=== PATIENT | female | born 1955 | race Caucasian/White ===

== ENCOUNTER → 2016-10-18 | Outpatient (CLI) | payer OTHER ==
--- NOTE | 2016-10-18 11:08 | DIAGNOSTIC IMAGING REPORT ---
PROCEDURE: XR HAND 3 OR 4 VIEWS BILATERAL INDICATION: POLYARTHRALGIA TECHNIQUE: Four views of each hand. COMPARISON: None. FINDINGS: RIGHT HAND: There is mild osteoarthritis in the first metacarpal phalangeal joint. Osseous structures and joint spaces are otherwise normal. LEFT HAND: There is mild osteoarthritis in the first metacarpal phalangeal joint. Osseous structures and joint spaces are otherwise normal. IMPRESSION: 1. Bilateral first MCP osteoarthritis.
== END ==
LOC: XR SRH 10:27
DX: M19.042 Primary osteoarthritis, left hand (principal); M19.041 Primary osteoarthritis, right hand

== ENCOUNTER 2016-12-14 21:38 | Emergency (ER) | payer OTHER ==
--- NOTE | 2016-12-14 22:35 | ED NURSING NOTES ---
Clinical Report - Nurses [facility] [address] [place] [address] 12/14/2016 21:38 Patient: KEITH CRYSTAL TRIAGE Triage time 21:45. Acuity: LEVEL 4. Chief Complaint: SKIN LESION. --21:49 Yohan Nagy 21:45 12/14/16. BP: 158/83. HR: 93. RR: 16. O2 saturation: 97%. Temp: 98.2 F. Pain level now: 04/18. --21:49 Rubén Nagy. Weight: 48 kg. Height/Length: 64 inches. BMI: 18.2. --21:47 Rubén Nagy. Medications Gabapentin Oral (Tablet 600 mg) 1-1/2 tablets, 3x a day. HydrOXYzine HCl Oral 25 mg, 4x a day. MetFORMIN HCl Oral (Tablet 500 mg) 1 tablet, 2x a day. Naproxen Oral (Tablet 500 mg) 1 tablet, 2x a day. TraZODone HCl Oral 50 mg, 3x a day. --21:49 Rubén Nagy. Allergies Augmentin. --21:49 Rubén Nagy. History Arrived by private vehicle. Historian: patient. ( left arm pit large red raised area, pt states she was taking antibiotics and may be having a reaction). Onset. (7 days). 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 PAST MEDICAL HX: Type II diabetes mellitus treated with oral medication. Immunizations: up-to-date. SOCIAL HX: Light tobacco smoker. No alcohol use or drug use. No infectious disease exposure. SELF HARM ASSESSMENT: A self harm assessment was performed. The patient answered "no" to the question "Have you recently felt down, depressed, or hopeless?", "Have you noticed less interest or pleasure in doing things?", "Do you have thoughts of harming or killing yourself?", "Are you here because you tried to hurt yourself?", "Have you ever tried to hurt yourself before today?", "Have you recently had thoughts about harming or killing others?" and "Do you have any dangerous items in your possession?". FALL RISK ASSESSMENT: Fall risk assessment completed. No fall risk identified. NUTRITIONAL RISK ASSESSMENT: The nutritional risk assessment revealed no deficiencies. FUNCTIONAL ASSESSMENT: Functional assessment: no impairments noted. LEARNING NEEDS ASSESSMENT: The learning needs assessment revealed no barriers. SKIN INTEGRITY ASSESSMENT: Skin integrity risk assessment completed. No skin integrity risk identified. --:49 Yohan Nagy PROBLEMS: Fall. Humerus Fracture. Insomnia. Panic Attack. Fibromyalgia. --:49 Rubén Nagy. ADDITIONAL SURGERIES: Bilateral hands. Cholecystectomy. Foot surgery. Tubal Ligation. --:49 Rubén Nagy. Interventions ID band on patient. To treatment room. --:49 Rubén Nagy. PHYSICAL ASSESSMENT Ambulatory to room. GENERAL / NEURO / PSYCH: Alert. Oriented X 4. Appears in no acute distress. HEENT: Pupils equal, round and reactive to light. No facial asymmetry noted. Mucous membranes are pink. RESPIRATORY: Respirations not labored. Chest nontender. Breath sounds within normal limits. CVS: Normal sinus rhythm noted. Capillary refill less than 2 seconds. Pulses within normal limits. GI / : Abdomen soft and nontender and normal bowel sounds. SKIN: Skin is warm and dry. Swelling with tenderness and heat to left axilla. Small area of erythema with tenderness, warmth and swelling to left axilla. --21:50 Yohan Nagy NURSING PROGRESS NOTES Patient identifiers checked. Call light placed in reach. Side rails up x 1. Bed placed in lowest position. Brakes of bed on. --21:50 Rubén Nagy. Patient gowned. --21:51 Yohan Nagy 22:12 12/14/2016 Lidocaine Injection 2 % given. Allergies verified and confirmed 5 rights. (given by ORTHOTICS PROSTHETICS ASSISTANT for procedure). --22:12 Rubén Nayg. DISPOSITION / DISCHARGE Departure time: 22:51. Condition at departure: improved. ( April Rn dressed the wound under the left arm. Dry intact dressing with no drainage was noted. Pt felt that the pain was improved.). No learning barriers present. Discharge instructions provided and reviewed with the patient. Reviewed medication(s) side effects, precautions, dosing and course information. Prescription(s) given to the patient (Zofran, Keflex, [place], Motrin). Patient verbalized understanding. Written instructions provided in Qatari. The patient was discharged by the nurse practitioner. She was discharged home and unaccompanied at time of discharge. She left the Emergency Department ambulatory and via private vehicle. Patient driving. DIAMOND COMA SCORE: Diamond Coma Scale: 15- eyes open spontaneously (4); best verbal response- oriented x 4 (5); best motor response- obeys commands (6). --22:51 Maximino Sadler R.N. 22:43 12/14/16. BP: 147/81. HR: 87. RR: 18. O2 saturation: 98%. Pain level now 10. --22:51 Maximino Sadler R.N. Locked/Released at 12/14/2016 22:51 by Maximino Sadler R.N.
--- NOTE | 2016-12-14 22:35 | ED CLINICAL REPORT ---
Clinical Report - Physicians/Mid Levels [facility] [address] [place] [address] 12/14/2016 21:38 Patient: KEITH CRYSTAL Time Seen: 21:54; initial patient contact, initial documentation, patient care assumed. Arrived- By private vehicle. Historian- patient. HISTORY OF PRESENT ILLNESS Chief Complaint: LESION. This started about 1 weeks ago and is still present. It was abrupt in onset and has been constant. It is described as painful. It has been located in the left axilla. No cause has been identified. Similar symptoms previously: None. Recent medical care: The patient was seen recently in a clinic. ( went to dr jeff Triana, dx with abscess, rx bactrim, but abscess is getting larger and more painful). REVIEW OF SYSTEMS No fever. All systems otherwise negative, except as recorded above. PAST HISTORY See nurses notes. PROBLEMS: Fall. Humerus Fracture. Insomnia. Panic Attack. Fibromyalgia. --21:49 Yakov RKenN. ADDITIONAL SURGERIES: Bilateral hands. Cholecystectomy. Foot surgery. Tubal Ligation. --21:49 Yakov R.N. SOCIAL HISTORY Light tobacco smoker. No alcohol use or drug use. No recent travel. Is a local resident. FAMILY HISTORY Negative. ADDITIONAL NOTES The nursing notes have been reviewed with agreement regarding the chief complaint, HPI, ROS, PMH and patient medications and allergies. PHYSICAL EXAM Vital Signs: 12/14/2016 21:45 BP: 158/83. HR: 93. RR: 16. O2 saturation: 97%. Temp: 98.2 F. Pain level now: 8/10. Have been reviewed as normal and appear to be correct. Appearance: Alert. Oriented X3. No acute distress. Eyes: Pupils equal, round and reactive to light. Conjunctivae and eyelids normal. Neck: Neck supple. Respiratory: No respiratory distress. Skin: Skin warm and dry. Normal skin color. No rash. Normal skin turgor. Single medium abscess with fluctuance, pointing, drainage and cellulitis to left axilla. Extremities: Normal external inspection. Extremities nontender. Neuro: Oriented X 3. No motor deficit. No sensory deficit. PROGRESS AND PROCEDURES Incision & Drainage of Abscess: The abscess is located in the left axilla. The risks of the procedure, benefits and alternatives were explained. Consent was obtained. Local anesthesia provided using 1% lidocaine. Skin cleansed with Betadine. The abscess was incised with a #11 surgical blade. A large amount of pus was drained. Cavity was irrigated with saline and packed with gauze. Sample obtained for cultures. Estimated blood loss: 5 mL. ( probed to break up inoculates, 1/4 inch iodoform packing placed, pt tolerated procedure well without issues). Patient counseled in person regarding the patient's stable condition and diagnosis. Differential Diagnosis: Other possible considerations: abscess, folliculitis, hydrasuppurative, mrsa, cellulitis. Above considerations are based on history and physical exam. Differential diagnosis was discussed with patient. Disposition: Discharged home in good and improved condition (22:34). Condition: good and stable. CLINICAL IMPRESSION Single deep abscess to the left axilla with incision and drainage. INSTRUCTIONS Warnings: GENERAL WARNINGS: Return or contact your physician immediately if your condition worsens or changes unexpectedly, if not improving as expected, or if other problems arise. Specifically return if problem worsens. Prescription Medications: Zofran 4 mg: Take 1 orally every six hours as needed for nausea/vomiting. Dispense ten (10). No refills. Substitution is permissible. Keflex 500 mg: take 1 capsule orally every 6 hours for 7 days. No refills. Substitution is permissible. [place] 5 mg / 325 mg tablets: take 1 orally every 6 hours as needed for pain. Dispense five (5). No refill. Motrin 800 mg tablets: take 1 tablet orally every 8 hours as needed for pain. Dispense thirty (30). No refills. Substitution is permissible. Follow-up: Follow up with your doctor in two days even if well and for wound check and packing removal. Call for an appointment. Summary of care provided to patient. Understanding of the discharge instructions verbalized by patient. (Electronically signed by Shantal Echeverria A.R.N.P. 12/14/2016 23:08)
--- NOTE | 2016-12-14 22:35 | ED ORDER SUMMARY ---
..... Patient: KEITH CRYSTAL N OrderSheet [facility] VisitID: [id number] [address] [place] [address] 61y, F Registration Date/Time: 12/14/2016 ORDER SHEET Weight: 48.0 kg Allergies: Augmentin GENERAL ORDERS: I&D Tray (22:02 12/14/2016 HBivens A.R.N.P.) (Ack 22:03 SRedmond) (22:11 TBowen R.N.) Dress Wounds (22:02 12/14/2016 HBivens A.R.N.P.) (Ack 22:03 SRedmond) (22:11 TBowen R.N.) Culture, Wound Deep (Arm) (L axilla) Urgent (22:02 12/14/2016 HBivens A.R.N.P.) (Ack 22:03 SRedmond) (22:11 TBowen R.N.) MEDICATION ORDERS: Lidocaine Injection 1% plain (NOW) (22:01 12/14/2016 HBivens A.R.N.P.) (22:12 TBowen R.N.) IV FLUIDS: ORDER SHEET NOTES: [Electronically signed by Maximino Sadler R.N. (22:51 12/14/2016)] [Electronically signed by Shantal EcheverriaR.N.PKen (23:08 12/14/2016)] [Electronically locked/signed by Maximino Sadler R.N. (22:51 12/14/2016)]
--- NOTE | 2016-12-14 22:35 | ED NURSING NOTES ---
Clinical Report - Nurses [facility] [address] [place] [address] 12/14/2016 21:38 Patient: KEITH CRYSTAL TRIAGE Triage time 21:45. Acuity: LEVEL 4. Chief Complaint: SKIN LESION. --21:49 Yohan Nagy 21:45 12/14/16. BP: 158/83. HR: 93. RR: 16. O2 saturation: 97%. Temp: 98.2 F. Pain level now: 04/18. --21:49 Rubén Nagy. Weight: 48 kg. Height/Length: 64 inches. BMI: 18.2. --21:47 Rubén Nagy. Medications Gabapentin Oral (Tablet 600 mg) 1-1/2 tablets, 3x a day. HydrOXYzine HCl Oral 25 mg, 4x a day. MetFORMIN HCl Oral (Tablet 500 mg) 1 tablet, 2x a day. Naproxen Oral (Tablet 500 mg) 1 tablet, 2x a day. TraZODone HCl Oral 50 mg, 3x a day. --21:49 Rubén Nagy. Allergies Augmentin. --21:49 Rubén Nagy. History Arrived by private vehicle. Historian: patient. ( left arm pit large red raised area, pt states she was taking antibiotics and may be having a reaction). Onset. (7 days). 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 PAST MEDICAL HX: Type II diabetes mellitus treated with oral medication. Immunizations: up-to-date. SOCIAL HX: Light tobacco smoker. No alcohol use or drug use. No infectious disease exposure. SELF HARM ASSESSMENT: A self harm assessment was performed. The patient answered "no" to the question "Have you recently felt down, depressed, or hopeless?", "Have you noticed less interest or pleasure in doing things?", "Do you have thoughts of harming or killing yourself?", "Are you here because you tried to hurt yourself?", "Have you ever tried to hurt yourself before today?", "Have you recently had thoughts about harming or killing others?" and "Do you have any dangerous items in your possession?". FALL RISK ASSESSMENT: Fall risk assessment completed. No fall risk identified. NUTRITIONAL RISK ASSESSMENT: The nutritional risk assessment revealed no deficiencies. FUNCTIONAL ASSESSMENT: Functional assessment: no impairments noted. LEARNING NEEDS ASSESSMENT: The learning needs assessment revealed no barriers. SKIN INTEGRITY ASSESSMENT: Skin integrity risk assessment completed. No skin integrity risk identified. --:49 Yohan Nagy PROBLEMS: Fall. Humerus Fracture. Insomnia. Panic Attack. Fibromyalgia. --:49 Rubén Nagy. ADDITIONAL SURGERIES: Bilateral hands. Cholecystectomy. Foot surgery. Tubal Ligation. --:49 Rubén Nagy. Interventions ID band on patient. To treatment room. --:49 Rubén Nagy. PHYSICAL ASSESSMENT Ambulatory to room. GENERAL / NEURO / PSYCH: Alert. Oriented X 4. Appears in no acute distress. HEENT: Pupils equal, round and reactive to light. No facial asymmetry noted. Mucous membranes are pink. RESPIRATORY: Respirations not labored. Chest nontender. Breath sounds within normal limits. CVS: Normal sinus rhythm noted. Capillary refill less than 2 seconds. Pulses within normal limits. GI / : Abdomen soft and nontender and normal bowel sounds. SKIN: Skin is warm and dry. Swelling with tenderness and heat to left axilla. Small area of erythema with tenderness, warmth and swelling to left axilla. --21:50 Yohan Nagy NURSING PROGRESS NOTES Patient identifiers checked. Call light placed in reach. Side rails up x 1. Bed placed in lowest position. Brakes of bed on. --21:50 Rubén Nagy. Patient gowned. --21:51 Yohan Nagy 22:12 12/14/2016 Lidocaine Injection 2 % given. Allergies verified and confirmed 5 rights. (given by DIRECTOR INTERNAL COMMUNICATIONS for procedure). --22:12 Rubén Nagy. DISPOSITION / DISCHARGE Departure time: 22:51. Condition at departure: improved. ( April Rn dressed the wound under the left arm. Dry intact dressing with no drainage was noted. Pt felt that the pain was improved.). No learning barriers present. Discharge instructions provided and reviewed with the patient. Reviewed medication(s) side effects, precautions, dosing and course information. Prescription(s) given to the patient (Zofran, Keflex, [place], Motrin). Patient verbalized understanding. Written instructions provided in [place]ij[place]. The patient was discharged by the nurse practitioner. She was discharged home and unaccompanied at time of discharge. She left the Emergency Department ambulatory and via private vehicle. Patient driving. DIAMOND COMA SCORE: Diamond Coma Scale: 15- eyes open spontaneously (4); best verbal response- oriented x 4 (5); best motor response- obeys commands (6). --22:51 Maximino Sadler R.N. 22:43 12/14/16. BP: 147/81. HR: 87. RR: 18. O2 saturation: 98%. Pain level now 10. --22:51 Maximino Sadler R.N. Locked/Released at 12/14/2016 22:51 by Maximino Sadler R.N.
--- NOTE | 2016-12-14 22:35 | ED ORDER SUMMARY ---
..... Patient: KEITH CRYSTAL N OrderSheet [facility] VisitID: [id number] [address] [place] [address] 61y, F Registration Date/Time: 12/14/2016 ORDER SHEET Weight: 48.0 kg Allergies: Augmentin GENERAL ORDERS: I&D Tray (22:02 12/14/2016 HBivens A.R.N.P.) (Ack 22:03 SRedmond) (22:11 TBowen R.N.) Dress Wounds (22:02 12/14/2016 HBivens A.R.N.P.) (Ack 22:03 SRedmond) (22:11 TBowen R.N.) Culture, Wound Deep (Arm) (L axilla) Urgent (22:02 12/14/2016 HBivens A.R.N.P.) (Ack 22:03 SRedmond) (22:11 TBowen R.N.) MEDICATION ORDERS: Lidocaine Injection 1% plain (NOW) (22:01 12/14/2016 HBivens A.R.N.P.) (22:12 TBowen R.N.) IV FLUIDS: ORDER SHEET NOTES: [Electronically signed by Maximino Sadler R.N. (22:51 12/14/2016)] [Electronically signed by Shantal EcheverriaR.N.PKen (23:08 12/14/2016)] [Electronically locked/signed by Maximino Sadler R.N. (22:51 12/14/2016)]
--- NOTE | 2016-12-14 23:08 | ED DISCHARGE INSTRUCTIONS ---
Patient: KEITH CRYSTAL General Instructions [facility] VisitID: [id number] [place] [address] 61y, F Registration Date/Time: 12/14/2016 Single deep abscess to the left axilla with incision and drainage. INSTRUCTIONS Warnings: GENERAL WARNINGS: Return or contact your physician immediately if your condition worsens or changes unexpectedly, if not improving as expected, or if other problems arise. Specifically return if problem worsens. Prescription Medications: Zofran 4 mg: Take 1 orally every six hours as needed for nausea/vomiting. Dispense ten (10). No refills. Substitution is permissible. Keflex 500 mg: take 1 capsule orally every 6 hours for 7 days. No refills. Substitution is permissible. Erin 5 mg / 325 mg tablets: take 1 orally every 6 hours as needed for pain. Dispense five (5). No refill. Motrin 800 mg tablets: take 1 tablet orally every 8 hours as needed for pain. Dispense thirty (30). No refills. Substitution is permissible. Follow-up: Follow up with your doctor in two days even if well and for wound check and packing removal. Call for an appointment. Summary of care provided to patient. Understanding of the discharge instructions verbalized by patient. ADDITIONAL INFORMATION Abscess [Incision & Drainage] An abscess (sometimes called a boil) occurs when bacteria get trapped under the skin and begin to grow. Pus forms inside the abscess as the body responds to the bacteria. An abscess can occur with an insect bite, ingrown hair, blocked oil gland, pimple, cyst, or puncture wound. Treatment of your abscess has required an incision to drain the pus. If the abscess pocket was large, a gauze packing may have been inserted. This will need to be removed and possibly replaced on your next visit. Antibiotics are not required in the treatment of a simple abscess, unless the infection is spreading into the skin around the wound (known as cellulitis). Healing of the wound will take about one to two weeks depending on the size of the abscess. Healthy tissue will grow from the bottom and sides of the opening until it seals over. Home Care: The wound may drain for the first two days. Cover the wound with a clean dry dressing. If the dressing becomes soaked with blood or pus, change it. If a gauze packing was placed inside the abscess cavity, you may be advised to remove it yourself. You may do this in the shower. Once the packing is removed, you should wash the area in the shower or bath 3 to 4 times a day, until the skin opening has closed. If you were prescribed antibiotics, take them as directed until they are all gone. You may use acetaminophen (Tylenol) or ibuprofen (Motrin, Advil) to control pain, unless another pain medicine was prescribed. [ NOTE: If you have liver disease or ever had a stomach ulcer, talk with your doctor before using these medicines.] Follow Up with your doctor as advised by our staff. If a gauze packing was inserted in your wound, it should be removed in 1-2 days. Check your wound every day for the signs of worsening infection listed below. Get Prompt Medical Attention if any of the following occur: Increasing redness or swelling Red streaks in the skin leading away from the wound Increasing local pain or swelling Continued pus draining from the wound two days after treatment Fever of 100.4F (38C) or higher, or as directed by your healthcare provider Cellulitis You have an infection of the skin known as cellulitis. This usually starts with a scrape, cut, insect bite, blister or other opening in the skin which becomes infected. This is a serious condition. It must be watched closely to be sure the infection is not spreading. With antibiotic treatment, the size of the red area will gradually shrink in size until the skin returns to normal. This will take 7-10 days. The red area should never increase in size once the antibiotic medicine has been started. Occasionally, an infection will be resistant to one antibiotic and another one will have to be used. Home Care: 1) Limit the use of the affected part, since excess movement can cause the infection to spread. 2) If the infection is on your leg, walk as little as possible during the first few days of the treatment. Keep your leg elevated while sitting. This will reduce swelling. 3) Take all of the antibiotic medicine exactly as directed until it is gone. Be careful not to miss any doses, especially during the first seven days. Follow Up with your doctor or this facility as directed. Check the infected area daily for the warning signs listed below. Get Prompt Medical Attention if any of the following occur: -- Spreading area of redness -- Increasing swelling or pain -- Appearance of pus or drainage -- Fever over 100.4 F (38.0 C) oral, or over 101.4 F (38.6 C) rectal, after two days on antibiotics Staph Infection (MRSA) "Staph" is the short name for the common bacteria called "staphylococcus aureus". Staph bacteria are often present on the skin without causing an infection. If it gets under the skin an infection occurs. This causes redness, tenderness, swelling and sometimes fluid drainage. MRSA stands for "Methicillin-Resistant Staph Aureus". Unlike a common staph infection, MRSA bacteria are resistant to the usual antibiotics and harder to treat. Also, MRSA is more toxic than common staph bacteria. It can spread quickly throughout the body and cause a life-threatening illness. MRSA is spread to others by direct physical contact with the bacteria. MRSA can also be transmitted from items contaminated by a person who has the bacteria, such as bandages, towels, bed sheets, or sports equipment. It is not spread through the air. Once you have a MRSA skin infection, you are at risk of having it recur in the future. If MRSA infection is suspected, the doctor may take a wound culture to confirm the diagnosis. Any abscess will be drained. One or sometimes two antibiotics that work against MRSA will be prescribed. Home Care: 1) Take any antibiotics prescribed exactly as directed until they are gone. 2) Follow the same washing procedures as outlined for Household Members below. 3) Keep draining wounds covered with clean, dry bandages. Change dressings as they become soiled. 4) You and those in contact with you should wash their hands frequently with soap and warm water or use an alcohol-based hand stencil printer. Do this after each time you change the bandage or touch the wound. 5) Avoid sharing personal items such as towels, washcloths, razors, clothing, or uniforms. Wash soiled sheets, towels or clothes in hot water with laundry detergent. Use an automatic clothes dryer set on high to kill any remaining bacteria. 6) Remove any artificial nails and nail greenlandic. 7) If you use a gym, wipe down equipment before and after each use. Treatment Of Household Members If you have been diagnosed with possible MRSA infection, those living with you are at higher risk of carrying the bacteria on their skin or in their nose, even if there is no sign of infection. Bacteria must be removed from the skin of all household members (including you) at the same time, so that it is not passed back and forth. Advise them to remove the bacteria as follows: Wash your whole body (scalp to toes) daily for five days with Hibiclens (chlorhexidine). Scrub fingernails with a brush for one minute twice a day. If any skin infections are present (boils, abscess, infected cut) these must be treated by a doctor. Washing alone will not treat a MRSA infection. Clean counter tops and children's toys; do not share personal items such as toothbrush and razors. It is okay to share glasses, plates, utensils. If antibiotic ointment was prescribed use it as directed. Follow Up with your doctor or as advised by our staff. If a wound culture was taken, call as directed in two days to obtain the results. If the culture result is positive for MRSA, tell medical personnel in the future that you were treated for this type of infection. Get Prompt Medical Attention if any of the following occur: -- Increasing redness, swelling or pain -- Red streaks in the skin around the wound -- Weakness or dizziness -- New appearance of pus or drainage from the wound -- New fever over 100.4 F (38.0 C) Ondansetron Oral disintegrating tablet What is this medicine? ONDANSETRON (on ILDEFONSO se harris) is used to treat nausea and vomiting caused by chemotherapy. It is also used to prevent or treat nausea and vomiting after surgery. How should I use this medicine? These tablets are made to dissolve in the mouth. Do not try to push the tablet through the foil backing. With dry hands, peel away the foil backing and gently remove the tablet. Place the tablet in the mouth and allow it to dissolve, then swallow. While you may take these tablets with water, it is not necessary to do so. Talk to your dairy tester regarding the use of this medicine in children. Special care may be needed. What side effects may I notice from receiving this medicine? Side effects that you should report to your doctor or health rn home care as soon as possible: allergic reactions like skin rash, itching or hives, swelling of the face, lips, or tongue breathing problems dizziness fast or irregular heartbeat feeling faint or lightheaded, falls fever and chills swelling of the hands and feet tightness in the chest Side effects that usually do not require medical attention (report to your doctor or health rn home care if they continue or are bothersome): constipation or diarrhea headache What may interact with this medicine? Do not take this medicine with any of the following medications: -apomorphine -cisapride -dofetilide -dronedarone -pimozide -thioridazine -ziprasidone This medicine may also interact with the following medications: -carbamazepine -phenytoin -rifampicin -tramadol -other medicines that prolong the QT interval (cause an abnormal heart rhythm) What if I miss a dose? If you miss a dose, take it as soon as you can. If it is almost time for your next dose, take only that dose. Do not take double or extra doses. Where should I keep my medicine? Keep out of the reach of children. Store between 2 and 30 degrees C (36 and 86 degrees F). Throw away any unused medicine after the expiration date. What should I tell my health care provider before I take this medicine? They need to know if you have any of these conditions: heart disease history of irregular heartbeat liver disease low levels of magnesium or potassium in the blood an unusual or allergic reaction to ondansetron, granisetron, other medicines, foods, dyes, or preservatives or trying to get breast-feeding What should I watch for while using this medicine? Check with your doctor or health rn home care as soon as you can if you have any sign of an allergic reaction. Cephalexin Monohydrate Oral tablet What is this medicine? CEPHALEXIN (sef a JACKSON in) is a cephalosporin antibiotic. It is used to treat certain kinds of bacterial infections It will not work for colds, flu, or other viral infections. How should I use this medicine? Take this medicine by mouth with a full glass of water. Follow the directions on the prescription label. This medicine can be taken with or without food. Take your medicine at regular intervals. Do not take your medicine more often than directed. Take all of your medicine as directed even if you think you are better. Do not skip doses or stop your medicine early. Talk to your dairy tester regarding the use of this medicine in children. While this drug may be prescribed for selected conditions, precautions do apply. What side effects may I notice from receiving this medicine? Side effects that you should report to your doctor or health rn home care as soon as possible: allergic reactions like skin rash, itching or hives, swelling of the face, lips, or tongue breathing problems pain or trouble passing urine redness, blistering, peeling or loosening of the skin, including inside the mouth severe or watery diarrhea unusually weak or tired yellowing of the eyes, skin Side effects that usually do not require medical attention (report to your doctor or health rn home care if they continue or are bothersome): gas or heartburn genital or anal irritation headache joint or muscle pain nausea, vomiting What may interact with this medicine? probenecid some other antibiotics What if I miss a dose? If you miss a dose, take it as soon as you can. If it is almost time for your next dose, take only that dose. Do not take double or extra doses. There should be at least 4 to 6 hours between doses. Where should I keep my medicine? Keep out of the reach of children. Store at room temperature between 59 and 86 degrees F (15 and 30 degrees C). Throw away any unused medicine after the expiration date. What should I tell my health care provider before I take this medicine? They need to know if you have any of these conditions: kidney disease stomach or intestine problems, especially colitis an unusual or allergic reaction to cephalexin, other cephalosporins, penicillins, other antibiotics, medicines, foods, dyes or preservatives or trying to get breast-feeding What should I watch for while using this medicine? Tell your doctor or health rn home care if your symptoms do not begin to improve in a few days. Do not treat diarrhea with over the counter products. Contact your doctor if you have diarrhea that lasts more than 2 days or if it is severe and watery. If you have diabetes, you may get a false-positive result for sugar in your urine. Check with your doctor or health rn home care. Hydrocodone Bitartrate, Acetaminophen Oral tablet What is this medicine? ACETAMINOPHEN; HYDROCODONE (a set a ANIL ajcinta fen; shirley droe KOE done) is a pain reliever. It is used to treat mild to moderate pain. How should I use this medicine? Take this medicine by mouth. Swallow it with a full glass of water. Follow the directions on the prescription label. If the medicine upsets your stomach, take the medicine with food or milk. Do not take more than you are told to take. Talk to your dairy tester regarding the use of this medicine in children. This medicine is not approved for use in children. What side effects may I notice from receiving this medicine? Side effects that you should report to your doctor or health rn home care as soon as possible: allergic reactions like skin rash, itching or hives, swelling of the face, lips, or tongue breathing problems confusion feeling faint or lightheaded, falls stomach pain yellowing of the eyes or skin Side effects that usually do not require medical attention (report to your doctor or health rn home care if they continue or are bothersome): nausea, vomiting stomach upset What may interact with this medicine? alcohol antihistamines isoniazid medicines for depression, anxiety, or psychotic disturbances medicines for sleep muscle relaxants naltrexone narcotic medicines (opiates) for pain phenobarbital ritonavir tramadol What if I miss a dose? If you miss a dose, take it as soon as you can. If it is almost time for your next dose, take only that dose. Do not take double or extra doses. Where should I keep my medicine? Keep out of the reach of children. This medicine can be abused. Keep your medicine in a safe place to protect it from theft. Do not share this medicine with anyone. Selling or giving away this medicine is dangerous and against the law. Store at room temperature between 15 and 30 degrees C (59 and 86 degrees F). Protect from light. Keep container tightly closed. Throw away any unused medicine after the expiration date. Discard unused medicine and used packaging carefully. Pets and children can be harmed if they find used or lost packages. What should I tell my health care provider before I take this medicine? They need to know if you have any of these conditions: brain tumor Crohn's disease, inflammatory bowel disease, or ulcerative colitis drink more than 3 alcohol-containing drinks per day drug abuse or addiction head injury heart or circulation problems kidney disease or problems going to the bathroom liver disease lung disease, asthma, or breathing problems an unusual or allergic reaction to acetaminophen, hydrocodone, other opioid analgesics, other medicines, foods, dyes, or preservatives or trying to get breast-feeding What should I watch for while using this medicine? Tell your doctor or health rn home care if your pain does not go away, if it gets worse, or if you have new or a different type of pain. You may develop tolerance to the medicine. Tolerance means that you will need a higher dose of the medicine for pain relief. Tolerance is normal and is expected if you take the medicine for a long time. Do not suddenly stop taking your medicine because you may develop a severe reaction. Your body becomes used to the medicine. This does NOT mean you are addicted. Addiction is a behavior related to getting and using a drug for a non-medical reason. If you have pain, you have a medical reason to take pain medicine. Your doctor will tell you how much medicine to take. If your doctor wants you to stop the medicine, the dose will be slowly lowered over time to avoid any side effects. You may get drowsy or dizzy when you first start taking the medicine or change doses. Do not drive, use machinery, or do anything that may be dangerous until you know how the medicine affects you. Stand or sit up slowly. There are different types of narcotic medicines (opiates) for pain. If you take more than one type at the same time, you may have more side effects. Give your health care provider a list of all medicines you use. Your doctor will tell you how much medicine to take. Do not take more medicine than directed. Call emergency for help if you have problems breathing. The medicine will cause constipation. Try to have a bowel movement at least every 2 to 3 days. If you do not have a bowel movement for 3 days, call your doctor or health rn home care. Too much acetaminophen can be very dangerous. Do not take Tylenol (acetaminophen) or medicines that contain acetaminophen with this medicine. Many non-prescription medicines contain acetaminophen. Always read the labels carefully. Ibuprofen Oral tablet What is this medicine? IBUPROFEN (eye BYOO proe fen) is a non-steroidal anti-inflammatory drug (NSAID). It is used for dental pain, fever, headaches or migraines, osteoarthritis, rheumatoid arthritis, or painful monthly periods. It can also relieve minor aches and pains caused by a cold, flu, or sore throat. How should I use this medicine? Take this medicine by mouth with a glass of water. Follow the directions on the prescription label. Take this medicine with food if your stomach gets upset. Try to not lie down for at least 10 minutes after you take the medicine. Take your medicine at regular intervals. Do not take your medicine more often than directed. A special MedGuide will be given to you by the pharmacist with each prescription and refill. Be sure to read this information carefully each time. Talk to your dairy tester regarding the use of this medicine in children. Special care may be needed. What side effects may I notice from receiving this medicine? Side effects that you should report to your doctor or health rn home care as soon as possible: allergic reactions like skin rash, itching or hives, swelling of the face, lips, or tongue black or bloody stools, blood in the urine or in vomit breathing problems changes in vision chest pain general ill feeling or flu-like symptoms nausea or vomiting redness, blistering, peeling or loosening of the skin, including inside the mouth slurred speech or weakness on one side of the body stomach pain unexplained weight gain or swelling unusually weak or tired yellowing of eyes or skin Side effects that usually do not require medical attention (report to your doctor or health rn home care if they continue or are bothersome): constipation or diarrhea dizziness gas or heartburn stomach upset What may interact with this medicine? Do not take this medicine with any of the following medications: cidofovir ketorolac methotrexate pemetrexed This medicine may also interact with the following medications: alcohol aspirin diuretics lithium other drugs for inflammation like prednisone warfarin What if I miss a dose? If you miss a dose, take it as soon as you can. If it is almost time for your next dose, take only that dose. Do not take double or extra doses. Where should I keep my medicine? Keep out of the reach of children. Store at room temperature between 15 and 30 degrees C (59 and 86 degrees F). Keep container tightly closed. Throw away any unused medicine after the expiration date. What should I tell my health care provider before I take this medicine? They need to know if you have any of these conditions: asthma cigarette smoker drink more than 3 alcohol containing drinks a day heart disease or circulation problems such as heart failure or leg edema (fluid retention) high blood pressure kidney disease liver disease stomach bleeding or ulcers an unusual or allergic reaction to ibuprofen, aspirin, other NSAIDS, other medicines, foods, dyes, or preservatives or trying to get breast-feeding What should I watch for while using this medicine? Tell your doctor or healthcare professional if your symptoms do not start to get better or if they get worse. This medicine does not prevent heart attack or stroke. In fact, this medicine may increase the chance of a heart attack or stroke. The chance may increase with longer use of this medicine and in people who have heart disease. If you take aspirin to prevent heart attack or stroke, talk with your doctor or health rn home care. Do not take other medicines that contain aspirin, ibuprofen, or naproxen with this medicine. Side effects such as stomach upset, nausea, or ulcers may be more likely to occur. Many medicines available without a prescription should not be taken with this medicine. This medicine can cause ulcers and bleeding in the stomach and intestines at any time during treatment. Ulcers and bleeding can happen without warning symptoms and can cause . To reduce your risk, do not smoke cigarettes or drink alcohol while you are taking this medicine. You may get drowsy or dizzy. Do not drive, use machinery, or do anything that needs mental alertness until you know how this medicine affects you. Do not stand or sit up quickly, especially if you are an older patient. This reduces the risk of dizzy or fainting spells. This medicine can cause you to bleed more easily. Try to avoid damage to your teeth and gums when you brush or floss your teeth. You have been given the following additional information: Abscess, Incision And Drainage Cellulitis MRSA Skin Infection, Suspected Or Confirmed Ondansetron Oral disintegrating tablet Cephalexin Monohydrate Oral tablet Hydrocodone Bitartrate, Acetaminophen Oral tablet Ibuprofen Oral tablet (Electronically signed by Shantal Echeverria A.R.N.P. 12/14/2016 23:08)
--- NOTE | 2016-12-14 23:09 | ED MAR SUMMARY ---
..... Medication Administration Record [facility] [address] [place] [address] Patient: KEITH CRYSTAL Visit ID: [id number] 61y, F Weight: 48.0 kg Height/Length: 64 in BMI: 18.2 ALLERGIES: Augmentin Given 22:12 12/14/2016 Yohan Nagy Medication Administered: LIDOCAINE [INJECTION], Dose: 2 % Injection. Medication Ordered: Lidocaine Injection 1% plain (NOW).
--- NOTE | 2016-12-14 23:09 | ED MED RECONCILIATION SUMMARY ---
Patient: KEITH CRYSTAL Medication Reconciliation Report [facility] VisitID: [id number] [place] [address] 61y, F Registration Date/Time: 12/14/2016 Weight: 48.0 kg Height/Length: 64 in. BMI: 18.2 ALLERGIES: Augmentin The patient's Home Medications are listed below: THE FOLLOWING MEDICATIONS NEED TO BE RECONCILED: Gabapentin Oral (600 mg) 1-1/2 tablets, 3x a day HydrOXYzine HCl Oral 25 mg, 4x a day MetFORMIN HCl Oral (500 mg) 1 tablet, 2x a day Naproxen Oral (500 mg) 1 tablet, 2x a day TraZODone HCl Oral 50 mg, 3x a day The source(s) of the original Home Medication information: Not obtained. The following Medications were given to the patient in the Emergency Department: Lidocaine [Injection] Injection 2 %, administered: 12/14/2016 10:12:00 PM The following Medications were prescribed to the patient: Zofran 4 mg: Take 1 orally every six hours as needed for nausea/vomiting. Dispense ten (10). No refills. Substitution is permissible. -- Shantal Echeverria A.R.N.P. Keflex 500 mg: take 1 capsule orally every 6 hours for 7 days. No refills. Substitution is permissible. -- Shantal Echeverria A.R.N.P. [place]wood 5 mg / 325 mg tablets: take 1 orally every 6 hours as needed for pain. Dispense five (5). No refill. -- Shantal Echeverria A.R.N.P. Motrin 800 mg tablets: take 1 tablet orally every 8 hours as needed for pain. Dispense thirty (30). No refills. Substitution is permissible. -- Shantal Echeverria A.R.N.P.
--- NOTE | 2016-12-14 23:09 | ED MAR SUMMARY ---
..... Medication Administration Record [facility] [address] [place] [address] Patient: KEITH CRYSTAL Visit ID: [id number] 61y, F Weight: 48.0 kg Height/Length: 64 in BMI: 18.2 ALLERGIES: Augmentin Given 22:12 12/14/2016 Yohan Nagy Medication Administered: LIDOCAINE [INJECTION], Dose: 2 % Injection. Medication Ordered: Lidocaine Injection 1% plain (NOW).
--- NOTE | 2016-12-14 23:09 | ED MED RECONCILIATION SUMMARY ---
Patient: KEITH CRYSTAL Medication Reconciliation Report [facility] VisitID: [id number] [place] [address] 61y, F Registration Date/Time: 12/14/2016 Weight: 48.0 kg Height/Length: 64 in. BMI: 18.2 ALLERGIES: Augmentin The patient's Home Medications are listed below: THE FOLLOWING MEDICATIONS NEED TO BE RECONCILED: Gabapentin Oral (600 mg) 1-1/2 tablets, 3x a day HydrOXYzine HCl Oral 25 mg, 4x a day MetFORMIN HCl Oral (500 mg) 1 tablet, 2x a day Naproxen Oral (500 mg) 1 tablet, 2x a day TraZODone HCl Oral 50 mg, 3x a day The source(s) of the original Home Medication information: Not obtained. The following Medications were given to the patient in the Emergency Department: Lidocaine [Injection] Injection 2 %, administered: 12/14/2016 10:12:00 PM The following Medications were prescribed to the patient: Zofran 4 mg: Take 1 orally every six hours as needed for nausea/vomiting. Dispense ten (10). No refills. Substitution is permissible. -- Shantal Echeverria A.R.N.P. Keflex 500 mg: take 1 capsule orally every 6 hours for 7 days. No refills. Substitution is permissible. -- Shantal Echeverria A.R.N.P. Terreton 5 mg / 325 mg tablets: take 1 orally every 6 hours as needed for pain. Dispense five (5). No refill. -- Shantal Echeverria A.R.N.P. Motrin 800 mg tablets: take 1 tablet orally every 8 hours as needed for pain. Dispense thirty (30). No refills. Substitution is permissible. -- Shantal Echeverria A.R.N.P.
== END 2016-12-14 22:40 | disposition home or self-care (01) ==
LOC: ED SRH 21:38
DX: L02.412 Cutaneous abscess of left axilla (principal); B95.62 Methicillin resistant Staphylococcus aureus infection as the cause of diseases classified elsewhere; E11.9 Type 2 diabetes mellitus without complications; Z79.84 Long term (current) use of oral hypoglycemic drugs; Z79.899 Other long term (current) drug therapy; Z88.1 Allergy status to other antibiotic agents; F17.210 Nicotine dependence, cigarettes, uncomplicated
CPT/HCPCS: 90070; 90131; 90309; 90470; 91672

== ENCOUNTER 2017-03-09 12:16 | Outpatient (CLI) | payer OTHER ==
--- NOTE | 2017-03-09 12:57 | DIAGNOSTIC IMAGING REPORT ---
PROCEDURE: XR CHEST 2 VIEW INDICATION: COPD WITH ACUTE BRONCHITIS TECHNIQUE: PA and lateral views. COMPARISON: Compared to chest x-ray on 07/17/2016. FINDINGS: Lungs are clear, although hyperexpanded. Heart and mediastinum are normal. Thorax is normal. IMPRESSION: 1. Pulmonary hyperexpansion consistent with chronic obstructive pulmonary disease. 2. Otherwise negative chest.
== END 2017-03-09 23:00 ==
LOC: XR SRH 12:16
DX: J44.0 Chronic obstructive pulmonary disease with (acute) lower respiratory infection (principal)